=== PATIENT | female | born 1960 | race Two or more races ===

== ENCOUNTER 2020-07-25 12:13 | Observation (INO) | payer MEDICAID ==
[~2020-07-25] VITALS: Ht 157.5 cm; Wt 90.9 kg
--- NOTE | 2020-07-25 12:50 | NUR ---
GLF X4 DAYS AGO, HIT HEAD ON FRIDGE. LT FINGERS NUMBNESS STARTING TODAY. HOT FLASHES. PT REPORTS NEW MOUTH DROOP. DENIES LOC, NO BLOOD THINNERS. R. FACIAL DROOP OBSERVED BY THIS RN. OTHERWISE NEURO INTACT. PT ATTACHED TO ALL MONITORS. VSS
--- NOTE | 2020-07-25 12:51 | NUR ---
GRANDDAUGHTER AT BEDSIDE.
--- NOTE | 2020-07-25 13:19 | NUR ---
dr. sanchez to bedside for evaluation.
[2020-07-25 13:50] LABS: BASOPHILS % (AUTO) 1 % (0-1); EOSINOPHILS % (AUTO) 3 % (1-7); LYMPHOCYTES % (AUTO) 28 % (22-44); MEAN CORPUSCULAR HEMOGLOBIN 21.7 pg (27.0-34.8); MEAN CORPUSCULAR HGB CONC 30.9 g/dL (32.4-35.8); MEAN PLATELET VOLUME 9.2 fL (7.4-10.4); MONOCYTES % (AUTO) 9 % (2-9); NEUTROPHILS % (AUTO) 60 % (42-75); PLATELET COUNT 330 x10^3/uL (130-400); RED BLOOD COUNT 4.91 x10^6/uL (3.82-5.3); RED CELL DISTRIBUTION WIDTH 20.1 % (9.6-15.2)
[2020-07-25 13:52] LABS: MD NO
--- NOTE | 2020-07-25 13:53 | NUR ---
PT RESTING IN BED WITH GRANDDAUGHTER AND DAUGHTER AT BEDSIDE. ALL QUESTIONS ANSWERED. ATTACHED TO MONITOR. VSS. FAYE. AWAITING HEAD CT.
[2020-07-25 13:59] LABS: ALBUMIN 3.5 g/dL (3.4-5.0); ANION GAP 5 mmol/L (5-15); CALCIUM 8.9 mg/dL (8.5-10.1); CHLORIDE 111 mmol/L (98-107); INTERNATIONAL NORMALIZED RATIO 0.96 (0.93-1.1); PROTHROMBIN TIME 10.3 Seconds (9.6-11.5)
[2020-07-25 14:02] LABS: ALANINE AMINOTRANSFERASE 32 U/L (12-78); ALKALINE PHOSPHATASE 116 U/L (45-117); BILIRUBIN,TOTAL 0.3 mg/dL (0.2-1.0); CREATININE 0.81 mg/dL (0.55-1.02); TOTAL PROTEIN 7.7 g/dL (6.4-8.2)
[2020-07-25 15:51] VITALS: BP 106/57
[2020-07-25] MEDS ORDERED: ASPIRIN 81 MG TABLET CHEW PO ONE (16:00)
[2020-07-25] MEDS ORDERED: ASPIRIN 81 MG TABLET CHEW ONE (16:05)
--- NOTE | 2020-07-25 16:08 | NUR ---
[facility] AT BEDSIDE.
--- NOTE | 2020-07-25 16:18 | NUR ---
pt passed rn bedside dsyphagia screening. medicated per emar. report called to pauline villagran
[2020-07-25] MEDS ORDERED: ONDANSETRON ODT 4 MG PO PRN (16:30)
[2020-07-25] MEDS ORDERED: ACETAMINOPHEN 325 MG TABLET PO PRN (16:30)
[2020-07-25] MEDS ORDERED: ONDANSETRON 2MG/ML, 2ML IVPush PRN (16:30)
[2020-07-25] MEDS ORDERED: ATORVASTATIN 40 MG TABLET PO SCH (21:00)
[2020-07-26] MEDS ORDERED: ASPIRIN 81 MG TABLET EC PO SCH (06:00)
== END 2020-07-25 16:56 | disposition home or self-care (01) ==
LOC: ED 13:35 → INTOOBSV 15:50 → EDIP 15:50 → SUATTDRO 16:00 → 4WST 16:40 → UNDODISIN 16:56
PROVIDERS: ADMIT Internal Medicine; ATTEND Family Medicine
DX: R29.810 Facial weakness (principal); R20.0 Anesthesia of skin; S00.93XA Contusion of unspecified part of head, initial encounter; S16.1XXA Strain of muscle, fascia and tendon at neck level, initial encounter; D50.9 Iron deficiency anemia, unspecified; E66.9 Obesity, unspecified; F17.200 Nicotine dependence, unspecified, uncomplicated; F15.10 Other stimulant abuse, uncomplicated; F10.10 Alcohol abuse, uncomplicated; Z68.36 Body mass index [BMI] 36.0-36.9, adult; F17.210 Nicotine dependence, cigarettes, uncomplicated; W18.30XA Fall on same level, unspecified, initial encounter; Y93.89 Activity, other specified; Y92.89 Other specified places as the place of occurrence of the external cause
CPT/HCPCS: 36415; 70450; 80053; 85025; 85610; 85730; 93005; 99285; G0378